=== PATIENT | female | born 1950 ===

== ENCOUNTER → 2018-03-30 22:15 | Outpatient (REF) | payer MEDICARE, SELFPAY ==
[2018-03-30 23:06] LABS: Vitamin D 25 Hydroxy (D3) 80.5 ng/mL (30.0-100.0)
[2018-04-04 13:57] LABS: Parathyroid Hormone Int 34 pg/mL (14-64)
== END ==
LOC: LAB 22:15
PROVIDERS: Visit Provider Family Medicine
DX: R82.994 Hypercalciuria (principal)
CPT/HCPCS: 36415; 82306; 83970